=== PATIENT | male | born 1965 | race Caucasian/White ===

== ENCOUNTER 2017-08-28 08:28 | Emergency (ER) | payer OTHER ==
--- NOTE | 2017-08-28 09:05 | C.PDOC ---
History Of Present Illness 52-year-old male, presents to the emergency department with complaints of generalized parasthesias and "feeling funny" x1 hour, that started after using Heroin. Patient states he has used Heroin in past "but never got like this before." He denies other drug use. No focal weakness. States "feels hard to move my head." Patient is compliant with blood pressure medication, but missed his dose today. Denies other associated symptoms at this time. GEN PARESTHESIA, "FEELING FUNNY" X 1 HR. ONSET AFTER USING HEROIN. PS HAS USED HEROIN BEFORE "BUT NEVER GOT LIKE THIS BEFORE". DENIES OTHER DRUG USE. NO FOCAL WEAKNESS "FEELS HARD TO MOVE MY HEAD". PS COMPLIANT W BP MEDS BUT MISSED DOSE TODAY. DENIES OTHER ASSOC SX EXAM NONTOXIC HEENT PERRLA ATRAUM NEURO SEE [facility] PSYCH CALM COOPERATIVE NO ACTIVE PSYCHOSIS, SI/SA NO OVERDOSE/WITHDRAWAL SKIN WARM DRY LUNGS CTA B/L NO W/R/R REMAINDER NEG Time Seen by Provider: 08/28/17 08:34 Chief Complaint (Nursing): Medical Clearance History Per: Patient History/Exam Limitations: no limitations Onset/Duration Of Symptoms: Hrs Current Symptoms Are (Timing): Still Present Severity: Moderate Past Medical History Reviewed: Historical Data, Nursing Documentation, Vital Signs Vital Signs: Last Vital Signs Temp 98.7 F 08/28/17 10:30 Pulse 68 08/28/17 10:30 Resp 12 08/28/17 10:30 BP 152/88 H 08/28/17 10:30 Pulse Ox 97 08/28/17 10:30 - Medical History PMH: Anxiety, Diabetes, HTN, Hyperlipidemia Family History: States: No Known Family Hx - Social History Hx Tobacco Use: No Hx Alcohol Use: Yes Hx Substance Use: Yes (last use this morning) - Immunization History Hx Tetanus Toxoid Vaccination: No Hx Influenza Vaccination: No Hx Pneumococcal Vaccination: No Review Of Systems Except As Marked, All Systems Reviewed And Found Negative. Constitutional: Negative for: Fever, Chills Cardiovascular: Negative for: Chest Pain, Palpitations Respiratory: Negative for: Shortness of Breath Gastrointestinal: Negative for: Nausea, Vomiting Neurological: Negative for: Weakness Physical Exam - Physical Exam Appears: Non-toxic, No Acute Distress, Other (CALM COOPERATIVE NO ACTIVE PSYCHOSIS, SI/SA NO OVERDOSE/WITHDRAWAL) Skin: Warm, Dry, No Rash Head: Atraumatic, Normacephalic Eye(s): bilateral: Normal Inspection, PERRL, EOMI Nose: Normal Oral Mucosa: Moist Lips: Normal Appearing Neck: Normal ROM Cardiovascular: Rhythm Regular, No Murmur Respiratory: Normal Breath Sounds, No Accessory Muscle Use, No Rales, No Rhonchi , No Wheezing Gastrointestinal/Abdominal: Soft, No Tenderness Extremity: Normal ROM Neurological/Psych: Other (See NIH) ED Course And Treatment - Laboratory Results Result Diagrams: 08/28/17 09:24 08/28/17 09:24 ECG: Interpreted By Me, Viewed By Me ECG Interpretation: No Acute Changes Interpretation Of ECG: [id number] Rate From EC O2 Sat by Pulse Oximetry: 100 (on RA) Pulse Ox Interpretation: Normal - Radiology CXR: Interpreted by Me CXR Interpretation: Yes: No Acute Disease NIHSS Stroke Scale - Date/Time Evaluation Performed Date Performed: 08/28/17 Time Performed: 09:05 When Was NIHSS Performed: Baseline - How Severe is the Stroke Level of Consciousness: 0=Alert LOC to Questions: 0=Both comments correct LOC to commands: 0=Obeys both correctly Best Gaze: 0=Normal Visual: 0=No visual loss Facial: 0=Normal Motor Arm - Left: 0=No drift Motor Arm - Right: 0=No drift Motor Leg - Left: 0=No drift Motor Leg - Right: 0=No drift Limb Ataxia: 0=Absent Sensory: 0=Normal Best Language: 0=No aphasia Dysarthia: 0=Normal articulation Extinction & Inattention (Neglect): 0=Normal, no object Score: 0 Progress - Re-Evaluation Re-evaluation Note: 08/28/17 13:03 PS FEELS BETTER COMPARED TO INITIAL. VSS. DETOX INFO GIVEN - Data Reviewed Data Reviewed: Lab, Diagnostic imaging, EKG, Old records rTPA Inclusion/Exclusion - Refusal of Treatment Patient Refused Treatment: No - Inclusion Criteria for Altepase Patient is 18 years or Older: Yes The Clinical Diagnosis of Ischemic Stroke That is Causing a Potentially Disabling Neurological Deficit: No Time of Onset is Well Established to be Less Than 270 Minute Before Treatment Would Begin: Yes Risk/Benefit Discussed With Patient/Family Member Present: No - Exclusion Criteria for Altepase Uncontrolled Hypertension at Time of Treatment (Systolic BP above 185 or Diastolic BP above 110 mmHg): No Active Internal Bleeding: No Known Bleeding Diathesis Including but Not Limited to: Platelets Below 100,000/ mm,PTT Above 40 sec After Heparin Use, Current Use of Oral Anitcoagulant With INR Greater Than 1.7 or PT Greater Than 15 secs: No Evidence of an Intracranial Hemorrhage: No Evidence of Major Acute Infarct With Signs Greater Than 1/3 MCA Territory: No Suspicion of Subarachnoid Hemorrhage on Pretreatment Evaluation Even if CT Head Negative For Hemorrhage: No - Warning to TPA With Conditions Following Conditions Weighed Against Anticipated Benefit: No Condition: Stroke Serevity Too Mild Disposition Counseled Patient/Family Regarding: Studies Performed, Diagnosis, Need For Followup - Disposition Referrals: DONALD,DETOX [Other] Disposition: HOME/ ROUTINE Disposition Time: 13:06 Condition: IMPROVED Instructions: Narcotic Abuse (ED), Paresthesia (ED) Forms: [employer] (Turkmen) - Clinical Impression Clinical Impression: Narcotic abuse, Paresthesia - Scribe Statement The provider has reviewed the documentation as recorded by the Scribe (Germain Ferrer) All medical record entries made by the Scribe were at my direction and personally dictated by me. I have reviewed the chart and agree that the record accurately reflects my personal performance of the history, physical exam, medical decision making, and the department course for this patient. I have also personally directed, reviewed, and agree with the discharge instructions and disposition.
[2017-08-28 09:31] LABS: BASO % 0.6 % (0.0-2.0); EOS # 0.1 K/uL (0.0-0.7); EOS % 1.8 % (0.0-4.0); HEMOGLOBIN 13.8 g/dL (12.0-18.0); LYMPH # 1.1 K/uL (1.0-4.3); LYMPH % 13.8 % (20.0-40.0); MEAN CELL VOLUME 93.5 fL (80.0-94.0); MEAN CORPUSCULAR HEMOGLOBIN 32.4 pg (27.0-31.0); MEAN CORPUSCULAR HGB CONC 34.7 g/dL (33.0-37.0); MEAN PLATELET VOLUME 7.6 fL (7.2-11.7); MONO # 0.7 K/uL (0.0-0.8); MONO % 8.5 % (0.0-10.0); NEUT # 5.8 K/uL (1.8-7.0); NEUT % 75.3 % (50.0-75.0); RBC 4.25 Mil/uL (4.40-5.90); WHITE BLOOD COUNT 7.7 K/uL (4.8-10.8)
[2017-08-28 09:35] LABS: SQUAMOUS EPITHIAL < 1 /hpf (0-5); URINE BILIRUBIN NEGATIVE (NEGATIVE); URINE BLOOD 1+ (NEGATIVE); URINE CLARITY Clear (Clear); URINE COLOR Yellow (YELLOW); URINE GLUCOSE (UA) NORMAL (Normal); URINE LEUKOCYTE ESTERASE NEG Leu/uL (Negative); URINE NITRATE NEGATIVE (NEGATIVE); URINE PROTEIN 1+ mg/dL (NEGATIVE)
--- NOTE | 2017-08-28 09:50 | RAD ---
HISTORY: SOB COMPARISON: Chest x-ray performed 08/20/13 TECHNIQUE: Chest, one view. FINDINGS: Examination limited by habitus. LUNGS: No focal consolidation. Please note that chest x-ray has limited sensitivity for the detection of pulmonary masses. PLEURA: No significant pleural effusion identified. No definite pneumothorax . CARDIOVASCULAR: Mild cardiomegaly. OSSEOUS STRUCTURES: Degenerative changes of the spine. VISUALIZED UPPER ABDOMEN: Unremarkable. OTHER FINDINGS: None. IMPRESSION: No focal consolidation, significant pleural effusion, or definite pneumothorax identified. Mild cardiomegaly.
[2017-08-28 10:03] LABS: CALCIUM 9.2 mg/dl (8.6-10.4); GFR AFRICAN-AMERICAN > 60; GFR NON-AFRICAN AMERICAN > 60
[2017-08-28 10:05] LABS: BLOOD UREA NITROGEN 14 mg/dL (9-20)
[2017-08-28 10:15] LABS: BARBITURATES, UR NEGATIVE (NEGATIVE); BENZODIAZEPINES, UR NEGATIVE (NEGATIVE); PHENCYCLIDINE, UR NEGATIVE (NEGATIVE)
--- NOTE | 2017-08-28 10:25 | CT ---
PROCEDURE: CT HEAD WITHOUT CONTRAST. HISTORY: PARESTHESIA COMPARISON: None available. TECHNIQUE: Axial computed tomography images were obtained through the head/brain without intravenous contrast. Radiation dose: Total exam DLP = 964.74 mGy-cm. This CT exam was performed using one or more of the following dose reduction techniques: Automated exposure control, adjustment of the mA and/or kV according to patient size, and/or use of iterative reconstruction technique. FINDINGS: HEMORRHAGE: No intracranial hemorrhage. BRAIN: No mass effect or edema. The mendez-white matter differentiation appears intact. Please note that MRI with diffusion imaging is more sensitive in the detection of acute ischemic event. VENTRICLES: No hydrocephalus. CALVARIUM: Unremarkable. PARANASAL SINUSES: Unremarkable as visualized. No significant inflammatory changes. MASTOID AIR CELLS: Unremarkable as visualized. No inflammatory changes. OTHER FINDINGS: None. IMPRESSION: No acute intracranial pathology identified.
[2017-08-28 10:55] LABS: OPIATES, UR POSITIVE (NEGATIVE)
[2017-08-28 13:13] VITALS: TEMP 98.6
[2017-08-28 13:52] VITALS: BP 173/97; PULSE 64; RESP 18; O2SAT 99
--- NOTE | 2017-08-29 23:43 | CARD ---
APPROVED REPORT EKG Measurement Heart [id number] <Conclusion> Normal sinus rhythm with sinus arrhythmia Prolonged QT Abnormal ECG
== END 2017-08-28 14:00 | disposition home or self-care (01) ==
LOC: C.ER 08:28
DX: F11.10 Opioid abuse, uncomplicated (principal); R20.2 Paresthesia of skin; I10 Essential (primary) hypertension

== ENCOUNTER 2018-02-22 22:29 | Inpatient (IN) | payer MEDICAID ==
--- NOTE | 2018-02-23 00:41 | C.PDOC ---
Time Seen by Provider: 02/22/18 23:05 Chief Complaint (Nursing): Psychiatric Evaluation History Per: Patient Onset/Duration Of Symptoms: Days Current Symptoms Are (Timing): Still Present Suicide/Self Injury Attempted (Context): None Modifying Factor(s): Alcohol, Narcotics Severity: Moderate Associated Symptoms: Agitation, Suicidal Thoughts Additional History Per: Prior Records Past Medical History Reviewed: Historical Data, Nursing Documentation, Vital Signs Vital Signs: Last Vital Signs Temp 97.9 F 02/22/18 22:40 Pulse 90 02/22/18 22:40 Resp 14 02/22/18 22:40 BP 165/98 H 02/22/18 22:40 Pulse Ox 97 02/23/18 00:40 - Medical History PMH: Anxiety, Diabetes, HTN, Hyperlipidemia Family History: States: Unknown Family Hx - Social History Hx Tobacco Use: No Hx Alcohol Use: Yes Hx Substance Use: Yes (Xanax. Snorts Heroin.) - Immunization History Hx Tetanus Toxoid Vaccination: No Hx Influenza Vaccination: No Hx Pneumococcal Vaccination: No Review Of Systems Except As Marked, All Systems Reviewed And Found Negative. Constitutional: Negative for: Fever Cardiovascular: Negative for: Chest Pain Respiratory: Negative for: Shortness of Breath Musculoskeletal: Negative for: Neck Pain Skin: Negative for: Rash Neurological: Negative for: Weakness, Numbness, Seizures Physical Exam - Physical Exam Appears: Non-toxic, No Acute Distress Skin: Normal Color, Warm, Dry Head: Atraumatic, Normacephalic Eye(s): bilateral: PERRL, EOMI Neck: Normal ROM, Supple Cardiovascular: Rhythm Regular Respiratory: Normal Breath Sounds, No Accessory Muscle Use Gastrointestinal/Abdominal: Soft, No Tenderness Extremity: Normal ROM Neurological/Psych: Oriented x3, Normal Motor, Normal Sensation ED Course And Treatment O2 Sat by Pulse Oximetry: 97 Pulse Ox Interpretation: Normal Disposition - Disposition Disposition Time: 00:53 Condition: STABLE Forms: [employer] (Maltese) - Clinical Impression Clinical Impression: Evaluation by psychiatric service required Physician Patient Turnover Patient Signed Over To: Sade Granados Handoff Comments: to f/up labs and medically clear pt for psych
[2018-02-23 00:52] LABS: BASO % 0.4 % (0.0-2.0); EOS # 0.1 K/uL (0.0-0.7); EOS % 0.8 % (0.0-4.0); HEMOGLOBIN 13.8 g/dL (12.0-18.0); LYMPH # 2.6 K/uL (1.0-4.3); LYMPH % 29.4 % (20.0-40.0); MEAN CELL VOLUME 94.4 fL (80.0-94.0); MEAN CORPUSCULAR HEMOGLOBIN 32.3 pg (27.0-31.0); MEAN CORPUSCULAR HGB CONC 34.2 g/dL (33.0-37.0); MEAN PLATELET VOLUME 6.7 fL (7.2-11.7); MONO # 0.8 K/uL (0.0-0.8); NEUT # 5.3 K/uL (1.8-7.0); NEUT % 60.4 % (50.0-75.0); NRBC % 0.1 % (0.0-2.0); RBC 4.27 Mil/uL (4.40-5.90); WHITE BLOOD COUNT 8.7 K/uL (4.8-10.8)
[2018-02-23 00:53] LABS: URINE BILIRUBIN NEGATIVE (NEGATIVE); URINE BLOOD 1+ (NEGATIVE); URINE CLARITY Clear (Clear); URINE COLOR Straw (YELLOW); URINE GLUCOSE (UA) NORMAL (Normal); URINE LEUKOCYTE ESTERASE NEG Leu/uL (Negative); URINE PROTEIN NEGATIVE (NEGATIVE); URINE UROBILINOGEN NORMAL mg/dL (0.2-1.0)
[2018-02-23 01:03] LABS: ALB/GLOB RATIO 1.4 (1.0-2.1); ALBUMIN 4.5 g/dL (3.5-5.0); ALT/SGPT 43 U/L (21-72); AST/SGOT 53 U/L (17-59); BLOOD UREA NITROGEN 9 mg/dL (9-20); GFR AFRICAN-AMERICAN > 60; GFR NON-AFRICAN AMERICAN > 60
[2018-02-23 01:09] LABS: BENZODIAZEPINES, UR NEGATIVE (NEGATIVE); PHENCYCLIDINE, UR NEGATIVE (NEGATIVE)
[2018-02-23 01:43] LABS: BARBITURATES, UR POSITIVE (NEGATIVE); OPIATES, UR POSITIVE (NEGATIVE)
--- NOTE | 2018-02-23 02:49 | PCM.BM ---
<LuciandidiadriaWendy - Last Filed: 02/23/18 02:47> Treatment Plan Problems - Problems identified on initial assessmt Depression Date Initiated: 02/23/18 (pt is depressed, SI with no plan ) Time Initiated: 02:47 Status: Active susbtance abuse Date Initiated: 02/23/18 ( uds positive for heroin, etoh) Time Initiated: 02:48 Status: Active Treatment assets and liabiliti Patient Assests: cooperative, ADL independent, physically healthy, cognitively intact Patient Liabilities: substance abuse, medical problems, legal issue - Milieu Protocol Maintain good personal hygiene: daily Encourage regular showers, daily Remind patient to perform daily oral care, daily Assist patient to perform ADL's Conduct patient checks and document Observation sheet: Q15 minutes Maintain personal safety: every shift Educate patient to report safety concerns to staff, every shift Monitor environment for contraband/sharps Medication safety: Monitor for expected outcome, potential side effects: every shift, Assess barriers to learning: every shift, Assess readiness for medication education: every shift <Sara Casillas - Last Filed: 02/24/18 15:46> Family Contact Family involvement: Patient does not wish Family/SO involvement Family contact: Patient declines to allow family contact at present - Goals for Treatment Patient goals for treatment: "I want to go to an outpatienr program." Discharge/Continuing Care - Education Needs Education Needs: Patient Medication, Patient Diagnosis/Disease Process, Patient Coping Skills, Patient Community resources - Discharge Discharge Criteria: Free of Suicidal thoughts, Normal sleep pattern, Ability to care for self, No longer exhibiting s/s of withdrawal, Reduction of target symptoms Discharge to:: Home, With Family, Substance Abuse Rehab - Treatment Team Participation Discussed with Family/SO: No Was Patient/Family/SO present at Treatment Team Meeting: Yes <Werner Huerta - Last Filed: 02/26/18 17:56> - Diagnosis (1) Bipolar 1 disorder, depressed, severe Status: Acute Interventions: 02/26/18 17:55 * Assess/adjust medications daily and /or as needed * See patient on an individual basis 7x/week to assess symptoms of depression * Monitor for side effects & effectiveness of medications (2) Alcohol use disorder, severe, dependence Status: Acute Interventions: 02/26/18 17:56 * Assess 7x/week regarding severity of withdrawal * Educate regarding risks, benefits, side effects and alternatives of medications * Use Motivational Interviewing for abstinence * Use CBT for relapse prevention * Medication management for withdrawal symptoms * Encourage medication assisted treatment (3) Opioid use disorder, severe, dependence Status: Acute Interventions: 02/26/18 17:56 * Assess 7x/week regarding severity of withdrawal * Educate regarding risks, benefits, side effects and alternatives of medications * Use Motivational Interviewing for abstinence * Use CBT for relapse prevention * Medication management for withdrawal symptoms * Encourage medication assisted treatment (4) Sedative, hypnotic or anxiolytic use disorder, moderate, in controlled environment Status: Acute Interventions: 02/26/18 17:56 * Assess 7x/week regarding severity of withdrawal * Educate regarding risks, benefits, side effects and alternatives of medications * Use Motivational Interviewing for abstinence * Use CBT for relapse prevention * Medication management for withdrawal symptoms * Encourage medication assisted treatment
[2018-02-23] MEDS ORDERED: Aluminum Hydroxide/Magnesium Hydroxide Susp (30 mL) PO PRN (10:02)
[2018-02-23] MEDS: Multiple Vitamins Tab PO SCH (10:15)
--- NOTE | 2018-02-23 14:29 | PCM.PSYCH ---
Initial Psychiatric Evaluation - Initial Psychiatric Evaluation Type of Admission: Voluntary Legal Status: Capacity Chief Complaint (in patient's own words): I was depressed and had thoughts of killing myself and family. History of Present Illness and Precipitating Events: Patient is a 52 years old, , unemployed, male with history of depression and substance use was admitted due to worsening of depression and withdrawing from substance use. Patient reported that he was depressed for some time, no treatment. His depression increased in intensity with decreased sleep with no change in appetite. Started having thoughts of killing himself and family. Denied any access to any weapon.History of suicidal attempts or homicidal ideations/ attempts. Reported he cries a lot and also feels hopelessness, helplessness and guilty. Denied any hallucinations. Reported feeling hyperactive at times, no anxiety symptoms. No history of previous inpatient psychiatric admissions and no visit to any psychiatrist. Patient has history of incarceration for many years. He was released in 1999 and was also on probation. Alcohol: Alcohol is his drug of choice. He started drinking alcohol at 14 years of age. Currently he was drinking 10-15 cans, each of 24 ounces, of beer daily. His last drink of alcohol was yesterday, 10 beers. His longest period of abstinence was 7 years until 2009 when he relapsed again. History of 15 previous detox and one rehabilitation at [facility]. Heroin: Started using heroin at 21 years of age, increased gradually up to 2-3 bundles daily, snorting. Currently he was using 4-5 bags daily snorting. Xanax: Started 2 years ago. He was taking 2-3 sticks of Xanax daily. Last used one week ago. Cannabis: He started using cannabis since his childhood. Currently he he was using one joint every 2 weeks. Last used yesterday. Denied smoking cigarettes. Patient was born in [place], has 10th grade of education. He is not working. His last job was one month ago, quit job for personal reasons. He is and has 4 children's. 3 children live with patient. Fourth one is grown up and lives alone. His height is 6 feet and weight is 250 pounds. Current Medications: Active Medications Generic Name Dose Route Start Last Admin Trade Name Freq PRN Reason Stop Dose Admin Al Hydrox/Mg Hydrox/Simethicone 30 ml 02/23/18 10:02 Maalox 30 Ml PO TID PRN Indigestion / Heartburn Chlordiazepoxide 25 mg 02/23/18 10:02 02/23/18 10:16 Librium PO 25 mg Q4H PRN Administration Alcohol Withdrawal Chlordiazepoxide 25 mg 02/23/18 12:00 Librium PO 02/27/18 11:59 Q6 SOFÍA Taper Clonidine HCl 0.1 mg 02/23/18 10:02 Catapres PO Q8 PRN COWS Score More or Equal to 5 Dicyclomine HCl 10 mg 02/23/18 10:04 Bentyl PO Q6 PRN Abdominal Cramps Folic Acid 1 mg 02/23/18 10:15 02/23/18 10:15 Folic Acid PO 1 mg DAILY SOFÍA Administration Gabapentin 400 mg 02/23/18 14:00 Neurontin PO TID SOFÍA Hydroxyzine HCl 25 mg 02/23/18 10:06 02/23/18 10:15 Atarax PO 25 mg Q6 PRN Administration Anxiety Ibuprofen 400 mg 02/23/18 10:05 Motrin Tab PO Q6 PRN Pain, moderate (4-7) Loperamide HCl 2 mg 02/23/18 10:02 Imodium PO Q8 PRN Diarrhea Methadone HCl 15 mg 02/23/18 10:15 02/23/18 10:40 Methadone PO 02/26/18 10:14 15 mg Q24H SOFÍA Administration Taper Multivitamins 1 tab 02/23/18 10:15 02/23/18 10:15 Hexavitamin PO 1 tab DAILY SOFÍA Administration Ondansetron HCl 4 mg 02/23/18 10:02 Zofran Tab PO Q8 PRN Nausea/Vomiting Pneumococcal Polyvalent Vaccine 0.5 ml 02/25/18 10:00 Pneumovax 23 Vaccine IM 02/25/18 10:01 .ONCE ONE Thiamine HCl 100 mg 02/23/18 10:15 02/23/18 10:15 Vitamin B1 Tab PO 100 mg DAILY SOFÍA Administration Trazodone HCl 50 mg 02/23/18 10:02 Desyrel PO HS PRN Insomnia Past Psychiatric History - Past Psychiatric History Previous Treatment History: Inpatient History of Abuse: None reported History of ETOH/Drug Use: See HPI History of Family Illness: Reported his aunt has unknown psychiatric illness. Also his sister and uncles has history of cocaine and heroin use. Pertinent Medical Hx (Current Medical&Sleep Prob, Allergies): Allergies Allergy/AdvReac Type Severity Reaction Status Date / Time No Known Allergies Allergy Verified 02/22/18 22:52 Exforge 10 mg-320 mg 08/20/13 MetFORMIN 08/20/13 Hypertension Diabetes mellitus Hypercholesterolemia Review of Systems - Psychiatric Psychiatric: As Per HPI, Depression, Hopelessness Mental Status Examination - Personal Presentation Personal Presentation: Looks stated age - Affect Affect: Depressed - Motor Activity Motor Activity: Calm - Reliability in Providing Information Reliability in Providing Information: Fair - Speech Speech: Relevant, Other (Pressured) - Mood Mood: Depressed - Formal Thought Process Formal Thought Process: No Impairment - Hallucinations/Delusions Hallucinations: Other (None reported) Delusions: Other - Obsessions/Compulsions Obsessions: None Compulsions: None - Cognitive Functions Orientation: Person, Place, Situation, Time Sensorium: Alert Attention/Concentration: Attentive Abstract Thinking: [place] Estimate of Intelligence: Average Judgement: Intact, as evidence by: Insight regarding need for hospitalization Memory: Recent intact, as evidence by: Ability to recall events of the day, Remote intact, as evidenced by: Ability to recall historical events - Risk Risk: Withdrawal, Diminished functioning - Strength & Assets Inventory Strength & Assets Inventory: Family support, Cooperative - Limitations Limitations: Other DSM 5 DX - DSM 5 DSM 5 Diagnosis: Major depressive disorder recurrent severe without psychotic features. Alcohol use disorder severe Alcohol withdrawal Opiate use disorder severe Opiate withdrawal Anxiolytics use disorder moderate Provisional: Bipolar 1 disorder most recent episode depressed - Recommended/Plan of Treatment Treatment Recommendations and Plan of Treatment: Patient education. Supportive therapy. CBT for relapse prevention. IA for abstinence. We will start Librium taper for alcohol withdrawal symptoms and methadone taper for opiate withdrawal symptoms. Other when necessary medications. We'll start medication for depression. Patient wants to go to [facility] for follow-up. After discharge from the hospital. Projected ELOS: 8-10 days - Smoking Cessation Smoking Cessation Initiated: No Reason for not providing: Patient doesn't smoke cigarettes.
[2018-02-24] MEDS: Multiple Vitamins Tab PO SCH (09:14)
--- NOTE | 2018-02-24 23:27 | PCM.PYCHPN ---
Psychiatric Progress Note - Psychiatric Progress Note Patient seen today, length of contact: 15 minutes Patient Chief Complaint: I'm little better. I'm still very hyper. Problems Identified/Issues Discussed: Patient seen, chart reviewed, case discussed with the staff. Issues related to illness and treatment were discussed with the patient and staff. Reported compliant with treatment with no adverse affects. Tolerating treatment very well. Patient reported feeling little better. Also reported feeling hyper. Calm and cooperative with good eye contact. Aftercare discussed with the patient. Awake alert oriented 3, no delusions, no auditory or visual hallucination, nose suicidal ideation or homicidal ideation at time of evaluation. Medical Problems: Hypertension Diabetes mellitus Hypercholesterinemia Diagnostic Results: Review DSM 5 Symptoms Update: Some improvement with treatment Medication Change: No Medical Record Reviewed: Yes Mental Status Examination - Cognitive Function Orientation: Person, Place, Situation, Time Memory: Intact Attention: WNL Concentration: WNL Association: WN Fund of Knowledge: [facility] Decription of patient's judgement and insights: Fair - Mood Mood: Depressed - Affect Affect: Depressed - Speech Speech: Loud, Pressured (At times) - Formal Thought Process Formal Thought Process: No Impairment Psychotic Thoughts and Behaviors: None - Suicidal Ideation Suicidal Ideation: No - Homicidal Ideation Homicidal Ideation: No Goal/Treatment Plan - Goal/Treatment Plan Need for Continued Stay: Remain at risks for inpatient hospitalization, Discharge may exacerbated symptoms, Severe functional impairment Progress Toward Problem(s) and Goals/Treatment Plan: Patient education. Supportive therapy. CBT for relapse prevention. IA for abstinence. Continue treatment as before. Patient wants to go to [facility] for follow-up. After discharge from the hospital. Estimated Date of D/C: 02/28/18 - Smoking Cessation Smoking Cessation Initiated: No
[2018-02-25] MEDS: Multiple Vitamins Tab PO SCH (09:18)
[2018-02-25] MEDS ORDERED: Pneumococcal 23-Valent Vaccine IM ONE (10:00)
--- NOTE | 2018-02-25 23:22 | PCM.PYCHPN ---
Psychiatric Progress Note - Psychiatric Progress Note Patient seen today, length of contact: 15 minutes Patient Chief Complaint: I'm feeling better with the treatment. Problems Identified/Issues Discussed: Patient seen, chart reviewed, case discussed with the staff. Issues related to illness and treatment were discussed with the patient and staff. Reported compliant with treatment with no adverse affects. Tolerating treatment very well. Patient reported feeling better. Calm and cooperative with good eye contact. Aftercare discussed with the patient. Awake alert oriented 3, no delusions, no auditory or visual hallucination, nose suicidal ideation or homicidal ideation at time of evaluation. Medical Problems: Diabetes mellitus Hypertension Hypercholesterinemia Diagnostic Results: Reviewed DSM 5 Symptoms Update: Some improvement with treatment Medication Change: No Medical Record Reviewed: Yes Mental Status Examination - Cognitive Function Orientation: Person, Place, Situation, Time Memory: Intact Attention: WNL Concentration: WNL Association: WNL Fund of Knowledge: [facility] Decription of patient's judgement and insights: Fair - Mood Mood: Depressed (Much less than before) - Affect Affect: Other (Appropriate) - Speech Speech: Appropriate - Formal Thought Process Formal Thought Process: No Impairment Psychotic Thoughts and Behaviors: None - Suicidal Ideation Suicidal Ideation: No - Homicidal Ideation Homicidal Ideation: No Goal/Treatment Plan - Goal/Treatment Plan Need for Continued Stay: Remain at risks for inpatient hospitalization, Discharge may exacerbated symptoms, Severe functional impairment Progress Toward Problem(s) and Goals/Treatment Plan: Patient education. Supportive therapy. CBT for relapse prevention. AR for abstinence. Continue treatment as before. Patient wants to go to [facility] for follow-up. After discharge from the hospital. Estimated Date of D/C: 02/28/18 - Smoking Cessation Smoking Cessation Initiated: No
[2018-02-26] MEDS: Multiple Vitamins Tab PO SCH (09:14)
[2018-02-26] MEDS: Divalproex 500 mg DR Tab PO SCH ×2 (10:04→17:51)
--- NOTE | 2018-02-26 18:04 | PCM.PYCHPN ---
Psychiatric Progress Note - Psychiatric Progress Note Patient seen today, length of contact: 15 minutes Patient Chief Complaint: I'm feeling better with the treatment. Still hyper. Problems Identified/Issues Discussed: Patient seen, chart reviewed, case discussed with the staff. Issues related to illness and treatment were discussed with the patient and staff. Reported compliant with treatment with no adverse affects. Tolerating treatment very well. Patient reported feeling better but still hyper. Calm and cooperative with good eye contact. Aftercare discussed with the patient. Awake alert oriented 3, no delusions, no auditory or visual hallucination, nose suicidal ideation or homicidal ideation at time of evaluation. Medical Problems: Diabetes mellitus Hypertension Hypercholesterinemia Diagnostic Results: Reviewed DSM 5 Symptoms Update: Some improvement with treatment Medication Change: Yes (Started Depakote 500 mg twice a day) Medical Record Reviewed: Yes Mental Status Examination - Cognitive Function Orientation: Person, Place, Situation, Time Memory: Intact Attention: WNL Concentration: WNL Association: WNL Fund of Knowledge: WN Decription of patient's judgement and insights: Fair - Mood Mood: Depressed (Much less than before) - Affect Affect: Other (Appropriate) - Speech Speech: Appropriate - Formal Thought Process Formal Thought Process: No Impairment Psychotic Thoughts and Behaviors: None - Suicidal Ideation Suicidal Ideation: No - Homicidal Ideation Homicidal Ideation: No Goal/Treatment Plan - Goal/Treatment Plan Need for Continued Stay: Remain at risks for inpatient hospitalization, Discharge may exacerbated symptoms, Severe functional impairment Progress Toward Problem(s) and Goals/Treatment Plan: Patient education. Supportive therapy. CBT for relapse prevention. TX for abstinence. We will start Depakote 500 mg twice a day. Patient agreed Continue rest of the treatment as before. Patient wants to go to [facility] for follow-up. After discharge from the hospital. Estimated Date of D/C: 02/28/18 - Smoking Cessation Smoking Cessation Initiated: No
[2018-02-27 06:30] VITALS: BP 158/86; PULSE 61; RESP 20; TEMP 97.9; O2SAT 100
[2018-02-27] MEDS: Divalproex 500 mg DR Tab PO SCH (10:03)
[2018-02-27] MEDS: Multiple Vitamins Tab PO SCH (10:10)
--- NOTE | 2018-02-27 12:18 | PCM.PYCHDC ---
Mental Status Examination - Mental Status Examination Orientation: Person Discharge Summary - Discharge Note Laboratory Data: Abnormal Lab Results 02/27/18 07:37 POC Glucose (mg/dL) 189 H Consultations:: List each consultation separately and include: 1. Reason for request. 2. Findings. 3. Follow-up Summary of Hospital Course include:: 1. Description of specific treatment plan utilized for patients during their course of treatmen. 2. Summarize the time- course for resolution of acute symptoms and/or regressed behaviors. 3. Describe issues identified and worked on during hospitalization. 4. Describe medication utilized. 5. Describe medical problems identified and treated. 6. Reassessment of suicide risk - Final Diagnosis (DSM 5) Condition upon Discharge: FAIR Disposition: HOME/ ROUTINE
== END 2018-02-27 13:03 | disposition home or self-care (01) | DRG 430 ==
LOC: C.ER 22:29 → C.5E 02-23 02:08
PROC: GZ3ZZZZ Medication Management (ICD-10-PCS; principal; 2018-02-23)
PROC: HZ2ZZZZ Detoxification Services for Substance Abuse Treatment (ICD-10-PCS; 2018-02-23)
PROC: HZ59ZZZ Individual Psychotherapy for Substance Abuse Treatment, Supportive (ICD-10-PCS; 2018-02-23)
PROC: GZ56ZZZ Individual Psychotherapy, Supportive (ICD-10-PCS; 2018-02-23)
PROC: GZHZZZZ Group Psychotherapy (ICD-10-PCS; 2018-02-23)
DX: F33.2 Major depressive disorder, recurrent severe without psychotic features (principal); F11.23 Opioid dependence with withdrawal; F10.239 Alcohol dependence with withdrawal, unspecified; F13.20 Sedative, hypnotic or anxiolytic dependence, uncomplicated; F10.229 Alcohol dependence with intoxication, unspecified; F31.4 Bipolar disorder, current episode depressed, severe, without psychotic features; F12.90 Cannabis use, unspecified, uncomplicated; I10 Essential (primary) hypertension; E11.9 Type 2 diabetes mellitus without complications; E78.5 Hyperlipidemia, unspecified; E78.00 Pure hypercholesterolemia, unspecified

== ENCOUNTER 2018-07-28 19:08 | Emergency (ER) | payer MEDICAID, OTHER ==
[2018-07-28 19:50] VITALS: BP 137/85; PULSE 90; RESP 20; TEMP 98.4; O2SAT 96
--- NOTE | 2018-07-28 20:59 | C.PDOC ---
History Of Present Illness 53 y/o male presents to the ED complaining of chronic left leg pain for the past several months. He denies any new pain. Patient is ambulatory in the ED, with pain. Denies any numbness, tingling, focal weakness, fever, chills, or other associated symptoms. Time Seen by Provider: 07/28/18 19:54 Chief Complaint (Nursing): Lower Extremity Problem/Injury History Per: Patient History/Exam Limitations: no limitations Onset/Duration Of Symptoms: Days Current Symptoms Are (Timing): Still Present Past Medical History Reviewed: Historical Data, Nursing Documentation, Vital Signs Vital Signs: Last Vital Signs Temp 98.4 F 07/28/18 19:44 Pulse 90 07/28/18 19:44 Resp 20 07/28/18 19:44 BP 137/85 07/28/18 19:44 Pulse Ox 96 07/28/18 19:44 - Medical History PMH: Anxiety, Diabetes, HTN, Hypercholesterolemia, Hyperlipidemia Denies: Hepatitis, HIV, Seizures, Sexually Transmitted Disease - [facility] Procedures DETOXIFICATION SERVICES FOR SUBSTANCE ABUSE TREATMENT (02/23/18) GROUP PSYCHOTHERAPY (02/23/18) INDIV PSYCHOTHERAPY FOR SUBSTANCE ABUSE TREATMENT, SUPPORT (02/23/18) INDIVIDUAL PSYCHOTHERAPY, SUPPORTIVE (02/23/18) MEDICATION MANAGEMENT (02/23/18) Family History: States: Unknown Family Hx - Social History Hx Tobacco Use: No Hx Alcohol Use: Yes (10 beers daily) Hx Substance Use: Yes - Immunization History Hx Tetanus Toxoid Vaccination: No Hx Influenza Vaccination: No Hx Pneumococcal Vaccination: No Review Of Systems Except As Marked, All Systems Reviewed And Found Negative. Constitutional: Negative for: Fever, Chills Musculoskeletal: Positive for: Leg Pain (chronic). Negative for: Back Pain Skin: Negative for: Lesions Neurological: Negative for: Weakness, Numbness, Incoordination Physical Exam - Physical Exam Appears: Non-toxic, No Acute Distress Skin: Warm, Dry, No Rash Head: Atraumatic, Normacephalic Eye(s): bilateral: Normal Inspection, PERRL, EOMI Oral Mucosa: Moist Neck: Normal ROM Chest: Symmetrical Respiratory: No Accessory Muscle Use, Other (Speaking in full sentences) Extremity: Normal ROM, Pedal Edema (trace), No Calf Tenderness, No Swelling, Other (chronic skin changes, venous stasis) Pulses: Left Dorsalis Pedis: Normal, Right Dorsalis Pedis: Normal Neurological/Psych: Oriented x3, Normal Motor, Normal Sensation, Other (No focal deficits) Gait: Steady ED Course And Treatment O2 Sat by Pulse Oximetry: 96 (RA) Pulse Ox Interpretation: Normal Medical Decision Making Medical Decision Making: Impression: Left leg pain, chronic Plan: - Motrin 600 mg PO - X-ray left tib/fib The case was discussed with Dr. Wayne (PMD) who states that the symptoms are chronic and has been evaluated in office and has had negative work up including venous doppler of the legs. On re-exam, the patient is ambulatory in the ED with steady gait. Disposition - Disposition Referrals: Timothy Wayne MD [Staff Provider] - Disposition: HOME/ ROUTINE Disposition Time: 21:27 Condition: STABLE Additional Instructions: Follow up with the medical doctor within 1-2 days. Return if worsened. Prescriptions: Naproxen [Naprosyn] 500 mg PO BID #20 tab Instructions: Dependent Edema (DC) Forms: [employer] (Ivorian) - Clinical Impression Clinical Impression: Leg edema - PA / PROCESSING OPERATOR / Resident Statement MD/DO has reviewed & agrees with the documentation as recorded. - Scribe Statement The provider has reviewed the documentation as recorded by the Scribmary Rodriguez All medical record entries made by the Scribe were at my direction and personally dictated by me. I have reviewed the chart and agree that the record accurately reflects my personal performance of the history, physical exam, medical decision making, and the department course for this patient. I have also personally directed, reviewed, and agree with the discharge instructions and disposition.
--- NOTE | 2018-07-29 09:39 | RAD ---
Date of service: 07/28/2018 PROCEDURE: Radiographs of the left tibia and fibula. HISTORY: leg pain and swelling COMPARISON: None available. TECHNIQUE: Frontal and lateral views obtained. FINDINGS: BONES: No fracture or destructive lesion. JOINT SPACES: Knee and ankle joint arthrosis OTHER FINDINGS: Circumferential lower leg and ankle subcutaneous reticulated edema. No gas-forming cellulitis seen. Cellulitis and/or lymphedema compatible with this. IMPRESSION: No osseous destructive lesion. Arthrosis as above. Extensive subcutaneous reticulated edema-correlate clinically
== END 2018-07-28 21:30 | disposition home or self-care (01) ==
LOC: C.ER 19:08
DX: R60.0 Localized edema (principal)

== ENCOUNTER 2018-08-31 08:03 | Day surgery (SDC) | payer OTHER ==
[2018-08-31] MEDS ORDERED: Propofol 10 mg/ml Inj (20 ML) ONE (11:22)
[2018-08-31] MEDS ORDERED: Midazolam 2 MG/2 ML VIAL ONE (11:24)
[2018-08-31] MEDS ORDERED: Lidocaine Hydrochloride 5 ML INJ ONE (11:24)
--- NOTE | 2018-08-31 11:24 | CP.SDSHP ---
Same Day Surgery H & P - History Proposed Procedure: COLONSCOPY Pre-Op Diagnosis: SEE NOTES - Previous Medical/Surgical History Cardiac: Hypertension Endocrine/Metabolic: Diabetes, Other Pain: 4.Moderate Pain - Allergies Allergies: Allergies No Known Allergies Allergy (Verified 08/31/18 08:34) - Physical Exam General Appearance: N Vital Signs: Vital Signs 08/31/18 08/31/18 08:20 11:21 Temperature 97 F L 97 F L Pulse Rate 60 57 L Respiratory 19 19 Rate Blood Pressure 141/79 157/80 H O2 Sat by Pulse 98 100 Oximetry Mental Status: Alert & Oriented x3 Neuro: WNL Heart: Other Lungs: WNL GI: Other - {Optional Preform as Required} Breast: WNL Abdomen: Other Integument: WNL : WNL Ortho: Other ENT: WNL - Impression Pt. Evaluated Today:Candidate for Anesthesia & Procedure: Yes - Date & Time Time: 11:24 Short Stay Discharge - Short Stay Discharge Admitting Diagnosis/Reason for Visit: DIARRHEA Disposition: HOME/ ROUTINE
[2018-08-31 12:14] VITALS: TEMP 97.4
[2018-08-31 12:15] VITALS: O2SAT 100
[2018-08-31 12:51] VITALS: BP 135/89; PULSE 51; RESP 14
== END 2018-08-31 12:50 | disposition home or self-care (01) ==
LOC: C.ENDO 08:03
PROVIDERS: ATTEND Specialist
DX: K58.0 Irritable bowel syndrome with diarrhea (principal); K64.8 Other hemorrhoids; K64.4 Residual hemorrhoidal skin tags; E11.9 Type 2 diabetes mellitus without complications; I10 Essential (primary) hypertension
CPT/HCPCS: 45380; 82948; 88305; 88313; J2250; J2704